=== PATIENT | female | born 1985 | race American Indian/Alaskan Native ===

== ENCOUNTER 2021-09-10 15:00 | Emergency (ER) | payer MEDICAID ==
[2021-09-10 16:19] LABS: ACETAMINOPHEN 0 ug/mL (10-30)
[2021-09-10] MEDS ORDERED: Sodium Chloride 0.9% 1,000 ML IV STA (16:21)
--- NOTE | 2021-09-10 16:21 | EDM.PDOCBH ---
ED HPI GENERAL MEDICAL PROBLEM - General Chief Complaint: Drug or Alcohol Abuse Stated Complaint: MED CLEARANCE Time Seen by Provider: 09/10/21 15:08 Source of Information: Reports: Patient, RN Notes Reviewed History Limitations: Reports: No Limitations - History of Present Illness INITIAL COMMENTS - FREE TEXT/NARRATIVE: Patient is a 35-year-old female presenting to the emergency department for medical clearance to go to the [facility]. Patient reports over the last 3-month, she has been going through episodes of binge drinking. Prior to this she had been sober for an extended period of time. In the past, she has had problems with alcoholism and drug use, however she reports that she had "kicked this ". She reports drinking [place] roximately 5 shots 3 to 4 days a week. She can go a number of days without drinking, however then subsequently goes through another binge. She feels that anxiety is likely the reason that she continues to drink is when she is completely sober she feels quite anxious. She has been treated for anxiety in the past, however it is been a number of years since she has been on any anxiety medications. Denies any history of withdrawal seizures or DT. She does not feel that she will go through alcohol withdrawal if she stops that she can usually go number of days without drinking. She is scheduled to see psychiatrist, Dr. Man on September 15. Denies any homicidal or suicidal ideation. - Related Data Allergies Allergy/AdvReac Type Severity Reaction Status Date / Time amoxicillin Allergy Cannot Verified 09/10/21 15:11 Remember Home Meds: Home Meds LORazepam [Ativan] 0.5 mg PO BID 5 Days #10 tab 09/10/21 [Rx] Past Medical History - Past Health History Medical/Surgical History: Denies Medical/Surgical History Psychiatric History: Reports: Addiction Social & Family History - Tobacco Use Tobacco Use Status *Q: Current Every Day Tobacco User Years of Tobacco use: 8 Packs/Tins Daily: 0.2 - Recreational Drug Use Recreational Drug Use: Yes Drug Use in Last 12 Months: No ED ROS GENERAL - Review of Systems Review Of Systems: Comprehensive ROS is negative, except as noted in HPI. ED EXAM, BEHAVIORAL HEALTH - Physical Exam Exam: See Below Exam Limited By: No Limitations General Appearance: Alert, WD/WN, Anxious Respiratory/Chest: No Respiratory Distress, Lungs Clear, Normal Breath Sounds, No Accessory Muscle Use, Chest Non-Tender Cardiovascular: Normal Peripheral Pulses, Regular Rate, Rhythm, No Edema, No Gallop, No JVD, No Murmur, No Rub GI/Abdominal: Normal Bowel Sounds, Soft, Non-Tender, No Organomegaly, No Distention, No Abnormal Bruit, No Mass Neurological: Alert, Normal Mood/Affect, CN II-XII Intact, Normal Cognition, Normal Reflexes, No Motor/Sensory Deficits, Oriented x 3 Psychiatric: Alert, Normal Affect, Normal Cognition, Normal Mood, Oriented Skin Exam: Warm, Dry, Intact, Normal color, No rash #1 Interpretation EKG Date: 09/10/21 Time: 16:03 Rhythm: NSR Rate (Beats/Min): 112 [place]: Normal P-Wave: Present QRS: Normal ST-T: Normal QT: Prolonged COURSE, BEHAVIORAL HEALTH COMP - Course Vital Signs: Last Vital Signs Temp 97.7 F 09/10/21 15:09 Pulse 101 H 09/10/21 18:42 Resp 16 09/10/21 18:42 BP 125/109 H 09/10/21 18:42 Pulse Ox 96 09/10/21 18:42 Orders, Labs, Meds: Laboratory Tests 09/10/21 09/10/21 09/10/21 Range/Units 15:20 15:20 15:20 WBC 3.80 L (3.98-10.04) K/mm3 RBC 5.14 (3.98-5.22) M/mm3 Hgb 14.1 (11.2-15.7) gm/dl Hct 43.9 (34.1-44.9) % MCV 85.4 (79.4-94.8) fl MCH 27.4 (25.6-32.2) pg MCHC 32.1 L (32.2-35.5) g/dl RDW Std Deviation 48.5 H (36.4-46.3) fL Plt Count 400 H (182-369) K/mm3 MPV 10.0 (9.4-12.3) fl Neutrophils % (Manual) 28 L (40-60) % Band Neutrophils % 0 (0-10) % Lymphocytes % (Manual) 49 H (20-40) % Atypical Lymphs % 5 % Monocytes % (Manual) 9 (2-10) % Eosinophils % (Manual) 8 H (0.7-5.8) % Basophils % (Manual) 1 (0.1-1.2) Platelet Estimate Increased Plt Morphology Comment See note RBC Morph Comment Normal Sodium 145 (136-145) mEq/L Potassium 4.5 (3.5-5.1) mEq/L Chloride 106 (98-107) mEq/L Carbon Dioxide 26 (21-32) mEq/L Anion Gap 17.5 H (5-15) BUN 8 (7-18) mg/dL Creatinine 0.6 (0.55-1.02) mg/dL Est Cr Clr Drug Dosing 107.23 mL/min Estimated GFR (MDRD) > 60 (>60) mL/min BUN/Creatinine Ratio 13.3 L (14-18) Glucose 107 H (70-99) mg/dL Calcium 8.5 (8.5-10.1) mg/dL Total Bilirubin 0.1 L (0.2-1.0) mg/dL AST 20 (15-37) U/L ALT 21 (14-59) U/L Alkaline Phosphatase 58 (46-116) U/L Total Protein 7.3 (6.4-8.2) g/dl Albumin 3.9 (3.4-5.0) g/dl Globulin 3.4 gm/dL Albumin/Globulin Ratio 1.2 (1-2) TSH 3rd Generation 0.937 (0.358-3.74) uIU/mL Urine HCG, Qual (NEGATIVE) Salicylates 1.8 L (2.8-20) mg/dL Urine Opiates Screen (IHTULL=193) Ur Buprenorphine Scrn (CUTOFF=10) Ur Oxycodone Screen (VLQ5IX=666) Urine Methadone Screen (PAUKPJ=978) Ur Propoxyphene Screen (TTFVRP=573) Acetaminophen 0 L (10-30) ug/mL Ur Barbiturates Screen (ADNFGT=073) Ur Tricyclics Screen (EOXXEW=382) Ur Phencyclidine Scrn (CUTOFF=25) Ur Amphetamine Screen (RTCTJN=094) U Methamphetamines Scrn (LXQZHN=374) U Benzodiazepines Scrn (ZYQNSU=744) U Cocaine Metab Screen (ODKZMM=152) U Marijuana (THC) Screen (CUTOFF=50) Ethyl Alcohol 0.33 (0.00) gm% 10/28/21 10/28/21 10/28/21 Range/Units 16:11 16:11 17:48 WBC (3.98-10.04) K/mm3 RBC (3.98-5.22) M/mm3 Hgb (11.2-15.7) gm/dl Hct (34.1-44.9) % MCV (79.4-94.8) fl MCH (25.6-32.2) pg MCHC (32.2-35.5) g/dl RDW Std Deviation (36.4-46.3) fL Plt Count (182-369) K/mm3 MPV (9.4-12.3) fl Neutrophils % (Manual) (40-60) % Band Neutrophils % (0-10) % Lymphocytes % (Manual) (20-40) % Atypical Lymphs % % Monocytes % (Manual) (2-10) % Eosinophils % (Manual) (0.7-5.8) % Basophils % (Manual) (0.1-1.2) Platelet Estimate Plt Morphology Comment RBC Morph Comment Sodium (136-145) mEq/L Potassium (3.5-5.1) mEq/L Chloride (98-107) mEq/L Carbon Dioxide (21-32) mEq/L Anion Gap (5-15) BUN (7-18) mg/dL Creatinine (0.55-1.02) mg/dL Est Cr Clr Drug Dosing mL/min Estimated GFR (MDRD) (>60) mL/min BUN/Creatinine Ratio (14-18) Glucose (70-99) mg/dL Calcium (8.5-10.1) mg/dL Total Bilirubin (0.2-1.0) mg/dL AST (15-37) U/L ALT (14-59) U/L Alkaline Phosphatase (46-116) U/L Total Protein (6.4-8.2) g/dl Albumin (3.4-5.0) g/dl Globulin gm/dL Albumin/Globulin Ratio (1-2) TSH 3rd Generation (0.358-3.74) uIU/mL Urine HCG, Qual Negative (NEGATIVE) Salicylates (2.8-20) mg/dL Urine Opiates Screen Negative (PUMRRE=360) Ur Buprenorphine Scrn Negative (CUTOFF=10) Ur Oxycodone Screen Negative (MBJ4MS=821) Urine Methadone Screen Negative (HXKNYF=343) Ur Propoxyphene Screen Negative (BGDJCZ=628) Acetaminophen (10-30) ug/mL Ur Barbiturates Screen Negative (BHRMJA=405) Ur Tricyclics Screen Negative (DFHQGA=599) Ur Phencyclidine Scrn Negative (CUTOFF=25) Ur Amphetamine Screen Negative (USGNMJ=396) U Methamphetamines Scrn Negative (KFDRPZ=436) U Benzodiazepines Scrn Negative (YNGUDA=124) U Cocaine Metab Screen Negative (FSNRJG=339) U Marijuana (THC) Screen Negative (CUTOFF=50) Ethyl Alcohol 0.26 (0.00) gm% Medications Discontinued Medications Generic Name Dose Route Start Last Admin Trade Name Freq PRN Reason Stop Dose Admin Sodium Chloride 1,000 mls @ 999 mls/hr 09/10/21 16:21 09/10/21 16:39 Normal Saline IV 09/10/21 17:21 999 mls/hr NOW STA Administration Medical Clearance: Patient is a 35-year-old female presenting to the emergency department for medical clearance to go to the [facility] [place]. Arrangements have been made for her to go there. They require blood alcohol to be less than 0.3. On breathalyzer, she was 0.27. Patient reports last drink was this morning. She had a drink in for the 3 days prior to that, however was sober for a number of days previously. Denies any history of withdrawal seizures or DTs. She does not feel that she will withdraw from alcohol as she can go an extended period of time without drinking in between her binges. She is cooperative but somewhat anxious. Expresses desire to stop drinking. I have ordered blood work, EKG, drug screen, and urinalysis medical clearance. 09/10/21 16:24 Hematology significant for WBC low at 3.8, and gap 17.5, alcohol 0.33. Drug screen and urinalysis are pending. EKG shows sinus tachycardia at 112 with no acute abnormalities. We will give her a liter of NS and plan to recheck an EtOH after this infuses. 09/10/21 18:24 Repeat blood alcohol is 0.26. Patient will be discharged to [facility] [place]. I will write for Ativan 0.5 mg twice daily until she is seen by psychiatry next Tuesday. Discharge instructions as documented. Departure - Departure Time of Disposition: 18:24 Disposition: Home, Self-Care 01 Condition: Good Clinical Impression: Alcohol abuse - Discharge Information *PRESCRIPTION DRUG MONITORING PROGRAM REVIEWED*: Yes *COPY OF PRESCRIPTION DRUG MONITORING REPORT IN PATIENT LANDY: No Prescriptions: LORazepam [Ativan] 0.5 mg PO BID 5 Days #10 tab Instructions: Alcohol Use Disorder Referrals: PCP,None [Primary Care Provider] - Forms: ED Department Discharge Additional Instructions: Take the Ativan as prescribed. Abstain from all alcohol use. Follow-up with Dr. Wei as scheduled on Tuesday. Return to ER as needed. Sepsis Event Note (ED) - Evaluation Sepsis Screening Result: No Definite Risk - Focused Exam Vital Signs: Vital Signs Temp Pulse Resp BP Pulse Ox 09/10/21 18:42 101 H 16 125/109 H 96 09/10/21 15:09 97.7 F 130 H 16 141/104 H 96
== END 2021-09-10 20:45 | disposition home or self-care (01) ==
LOC: JD.ED 15:00
DX: F10.10 Alcohol abuse, uncomplicated (principal); Y90.0 Blood alcohol level of less than 20 mg/100 ml; Z88.0 Allergy status to penicillin; Z72.0 Tobacco use
CPT/HCPCS: 36415; 80053; 80143; 80179; 80306; 80307; 81025; 84443; 85007; 85027; 93005; 99283; J7030

== ENCOUNTER 2021-09-24 19:57 | Emergency (ER) | payer MEDICAID ==
[2021-09-24] MEDS ORDERED: Ondansetron 4 MG Tab.DIS PO ONE (20:44)
--- NOTE | 2021-09-24 20:54 | EDM.PDOCBH ---
ED HPI GENERAL MEDICAL PROBLEM - General Chief Complaint: Drug or Alcohol Abuse Stated Complaint: DETOX Time Seen by Provider: 09/24/21 20:51 Source of Information: Reports: Patient History Limitations: Reports: Intoxication - History of Present Illness INITIAL COMMENTS - FREE TEXT/NARRATIVE: Patient is 35-year-old female with longstanding history of alcohol abuse presenting with a chief complaint of wanting help for alcohol detox. Patient was recently here on September 10 for similar complaint. Patient states she [facility]. She is not sure how long she was there for. She states she wants help and cannot continue her life like this. She reports several episodes of vomiting today but denies any blood in her vomit. Denies any abdominal pain. Reports last drink about 1 hour prior to arrival. Denies any drug use. - Related Data Allergies Allergy/AdvReac Type Severity Reaction Status Date / Time amoxicillin Allergy Cannot Verified 09/10/21 15:11 Remember Home Meds: Home Meds LORazepam [Ativan] 0.5 mg PO BID 5 Days #10 tab 09/10/21 [Rx] chlordiazePOXIDE [Librium] See Taper PO DAILY #15 cap 09/25/21 [Rx] Past Medical History - Past Health History Medical/Surgical History: Denies Medical/Surgical History Musculoskeletal History: Reports: Other (See Below) Other Musculoskeletal History: cr ccient 2007 and many fractured kirill Psychiatric History: Reports: Addiction - Infectious Disease History Infectious Disease History: Reports: None Social & Family History - Tobacco Use Tobacco Use Status *Q: Former Tobacco User Used Tobacco, but Quit: Yes Month/Year Tobacco Last Used: 1 monh ago - Caffeine Use Caffeine Use: Reports: None - Recreational Drug Use Recreational Drug Use: No ED ROS GENERAL - Review of Systems Review Of Systems: See Below Free Text/Narrative/Comment: In addition to that documented in the HPI above, the additional ROS was obtained: Constitutional: Denies fevers or chills Eyes: Denies vision changes ENMT: Denies sore throat CV: Denies chest pain Resp: Denies SOB GI: Per HPI : Denies painful urination MSK: Denies recent trauma Skin: Denies new rashes Neuro: Denies new numbness or tingling or weakness Endocrine: Denies unexpected weight loss Heme: Denies bleeding disorders ED EXAM, BEHAVIORAL HEALTH - Physical Exam Exam: See Below Text/Narrative:: I have reviewed the triage vital signs Const: Patient is slurring her speech appears to be heavily intoxicated. Eyes: Pupils Equal and reactive to light bilaterally, no conjunctival injection HENT: No signs of trauma or swelling, Neck supple without meningismus CV: Tachycardia with regular rhythm, Warm, well-perfused extremities RESP: Unlabored respiratory effort GI: soft, non-tender, non-distended, no masses MSK: No gross deformities appreciated Skin: Warm, dry. No rashes Neuro: There are no tremors at rest or with arms extended. 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 Sensation and motor function of extremities grossly intact. Psych: Laughing and appears to be in good spirits COURSE, BEHAVIORAL HEALTH COMP - Course Vital Signs: Last Vital Signs Temp 36.3 C 09/24/21 20:33 Pulse 94 09/25/21 05:55 Resp 16 09/25/21 05:55 BP 110/70 09/25/21 05:55 Pulse Ox 97 09/25/21 05:55 Orders, Labs, Meds: Laboratory Tests 09/24/21 09/24/21 09/25/21 Range/Units 21:03 21:03 04:55 WBC 4.86 (3.98-10.04) K/mm3 RBC 5.32 H (3.98-5.22) M/mm3 Hgb 14.6 (11.2-15.7) gm/dl Hct 44.6 (34.1-44.9) % MCV 83.8 (79.4-94.8) fl MCH 27.4 (25.6-32.2) pg MCHC 32.7 (32.2-35.5) g/dl RDW Std Deviation 47.6 H (36.4-46.3) fL Plt Count 296 D (182-369) K/mm3 MPV 10.1 (9.4-12.3) fl Neut % (Auto) 64.2 (34.0-71.1) % Lymph % (Auto) 24.1 (19.3-51.7) % [place] % (Auto) 4.7 (4.7-12.5) % Eos % (Auto) 5.1 (0.7-5.8) Baso % (Auto) 1.9 H (0.1-1.2) % Neut # (Auto) 3.12 (1.56-6.13) K/mm3 Lymph # (Auto) 1.17 L (1.18-3.74) K/mm3 [place] # (Auto) 0.23 L (0.24-0.36) K/mm3 Eos # (Auto) 0.25 (0.04-0.36) K/mm3 Baso # (Auto) 0.09 H (0.01-0.08) K/mm3 Sodium 143 (136-145) mEq/L Potassium 4.0 (3.5-5.1) mEq/L Chloride 104 (98-107) mEq/L Carbon Dioxide 26 (21-32) mEq/L Anion Gap 17.0 H (5-15) BUN 9 (7-18) mg/dL Creatinine 0.5 L (0.55-1.02) mg/dL Est Cr Clr Drug Dosing 123.02 mL/min Estimated GFR (MDRD) > 60 (>60) mL/min BUN/Creatinine Ratio 18.0 (14-18) Glucose 114 H (70-99) mg/dL Calcium 8.2 L (8.5-10.1) mg/dL Total Bilirubin 0.3 (0.2-1.0) mg/dL GGT 107 H (5-55) U/L AST 84 H (15-37) U/L ALT 48 (14-59) U/L Alkaline Phosphatase 63 (46-116) U/L Total Protein 7.6 (6.4-8.2) g/dl Albumin 3.9 (3.4-5.0) g/dl Globulin 3.7 gm/dL Albumin/Globulin Ratio 1.1 (1-2) Ethyl Alcohol 0.39 0.21 (0.00) gm% Medications Discontinued Medications Generic Name Dose Route Start Last Admin Trade Name Freq PRN Reason Stop Dose Admin Ketorolac Tromethamine 30 mg 09/25/21 01:01 09/25/21 01:08 Ketorolac 15 Mg/Ml Sdv IM 09/25/21 01:02 Not Given ONETIME ONE Ondansetron HCl 4 mg 09/24/21 20:44 09/24/21 20:52 Ondansetron 4 Mg Tab.Dis PO 09/24/21 20:45 4 mg ONETIME ONE Administration Departure - Departure Time of Disposition: 05:44 Disposition: Home, Self-Care 01 Clinical Impression: Alcohol abuse, Alcohol intoxication - Discharge Information Prescriptions: chlordiazePOXIDE [Librium] See Taper PO DAILY #15 cap Referrals: PCP,None [Primary Care Provider] - Forms: ED Department Discharge Sepsis Event Note (ED) - Focused Exam Vital Signs: Vital Signs Temp Pulse Resp BP Pulse Ox 09/25/21 05:55 94 16 110/70 97 09/24/21 20:33 36.3 C 127 H 20 148/104 H 100 - Assessment/Plan Assessment:: Patient is 35-year-old female presenting to the emergency room with a complaint of alcohol intoxication. She is requesting detox as well. Patient initial blood alcohol level 0.39. No other significant laboratory abnormalities noted besides elevated GGT which is expected with alcohol abuse. She rested to the emergency room overnight without event. Discharged in the morning to balance with Librium taper for alcohol detox. Return precautions discussed as usual. No evidence of withdrawal discharge.
[2021-09-25] MEDS ORDERED: Ketorolac 15 MG/ML SDV IM ONE (01:01)
== END 2021-09-25 06:48 | disposition home or self-care (01) ==
LOC: JD.ED 19:57
DX: F10.129 Alcohol abuse with intoxication, unspecified (principal); Y90.0 Blood alcohol level of less than 20 mg/100 ml; Z87.891 Personal history of nicotine dependence; Z88.0 Allergy status to penicillin
CPT/HCPCS: 36415; 80053; 80307; 82977; 85025; 99284; A9270

== ENCOUNTER 2021-09-25 09:16 | Emergency (ER) | payer MEDICAID ==
[2021-09-25] MEDS ORDERED: LORazepam 1 MG Tab PO ONE (10:23)
[2021-09-25] MEDS ORDERED: Ondansetron 4 MG Tab.DIS PO ONE (10:24)
--- NOTE | 2021-09-25 10:29 | EDM.PDOCBH ---
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 She was seen here early this morning. Her original blood alcohol was 0.39. She was here for a few hours and it went down to 0.21. She went to [facility] to get help and she is anxious, cannot sleep, shaking, and she has nausea and vomiting. She has no fever, chills, cough, chest pain, or shortness of breath. Dr Pathak did prescribed librium but the pharmacy was not open yet and they could not get that picked up. Onset: Gradual Duration: Hour(s): Severity: Moderate Improves with: Reports: None Worsens with: Reports: None Associated Symptoms: Reports: Nausea/Vomiting. Denies: Chest Pain, Cough, Fever/Chills, Headaches, Shortness of Breath - Related Data Allergies Allergy/AdvReac Type Severity Reaction Status Date / Time amoxicillin Allergy Cannot Verified 09/25/21 09:53 Remember Home Meds: Home Meds LORazepam [Ativan] 1 mg PO DAILY #18 tablet 09/25/21 [Rx] Ondansetron [Zofran ODT] 4 mg PO Q6H PRN #20 tab.dis 09/25/21 [Rx] chlordiazePOXIDE [Librium] See Taper PO DAILY #15 cap 09/25/21 [Rx] Past Medical History - Past Health History Medical/Surgical History: Denies Medical/Surgical History Musculoskeletal History: Reports: Other (See Below) Other Musculoskeletal History: cr ccient 2007 and many fractured kirill Psychiatric History: Reports: Addiction - Infectious Disease History Infectious Disease History: Reports: None Social & Family History - Tobacco Use Tobacco Use Status *Q: Never Tobacco User - Caffeine Use Caffeine Use: Reports: None ED ROS GENERAL - Review of Systems Review Of Systems: See Below Constitutional: Reports: No Symptoms HEENT: Reports: No Symptoms Respiratory: Reports: No Symptoms Cardiovascular: Reports: No Symptoms Endocrine: Reports: No Symptoms GI/Abdominal: Reports: Nausea, Vomiting. Denies: Abdominal Pain : Reports: No Symptoms Musculoskeletal: Reports: No Symptoms Neurological: Reports: Other (shaking) Psychiatric: Reports: Anxiety ED EXAM, BEHAVIORAL HEALTH - Physical Exam Exam: See Below Exam Limited By: No Limitations General Appearance: Alert, Anxious Ears: Normal External Exam Nose: Normal Inspection Head: Atraumatic, Normocephalic Neck: Normal Inspection Respiratory/Chest: No Respiratory Distress, Lungs Clear, Normal Breath Sounds Cardiovascular: Regular Rate, Rhythm, No Edema, No Murmur GI/Abdominal: Soft, Non-Tender, No Organomegaly, No Mass Back Exam: Normal Inspection Extremities: Normal Inspection Neurological: Other (shaking) COURSE, BEHAVIORAL HEALTH COMP - Course Vital Signs: Last Vital Signs Temp 97.8 F 09/25/21 09:49 Pulse 99 09/25/21 09:49 Resp 16 09/25/21 09:49 BP 153/95 H 09/25/21 09:49 Pulse Ox 97 09/25/21 09:49 Orders, Labs, Meds: Medications Discontinued Medications Generic Name Dose Route Start Last Admin Trade Name Freq PRN Reason Stop Dose Admin Lorazepam 2 mg 09/25/21 10:23 09/25/21 10:34 Lorazepam 1 Mg Tab PO 09/25/21 10:24 2 mg ONETIME ONE Administration Ondansetron HCl 4 mg 09/25/21 10:24 09/25/21 10:34 Ondansetron 4 Mg Tab.Dis PO 09/25/21 10:25 4 mg ONETIME ONE Administration Re-Assessment/Re-Exam: I ordered ativan 2mg PO and zofran 4mg ODT. She feels better. I will discharge her to the [facility] with ativan and zofran. Departure - Departure Time of Disposition: 12:05 Disposition: Home, Self-Care 01 Condition: Good Clinical Impression: Alcohol withdrawal syndrome Qualifiers: Complication of substance-induced condition: uncomplicated Qualified Code(s): F10.230 - Alcohol dependence with withdrawal, uncomplicated - Discharge Information *PRESCRIPTION DRUG MONITORING PROGRAM REVIEWED*: Not Applicable *COPY OF PRESCRIPTION DRUG MONITORING REPORT IN PATIENT LANDY: Not Applicable Prescriptions: LORazepam [Ativan] 1 mg PO DAILY #18 tablet Ondansetron [Zofran ODT] 4 mg PO Q6H PRN #20 tab.dis PRN Reason: Nausea\vomiting Referrals: PCP,None [Primary Care Provider] - Forms: ED Department Discharge Additional Instructions: Take the ativan and zofran as prescribed. Drink plenty of fluids. Go directly to the [facility]. Please return if you are worse. Sepsis Event Note (ED) - Evaluation Sepsis Screening Result: No Definite Risk - Focused Exam Vital Signs: Vital Signs Temp Pulse Resp BP Pulse Ox 09/25/21 09:49 97.8 F 99 16 153/95 H 97
== END 2021-09-25 12:40 | disposition home or self-care (01) ==
LOC: JD.ED 09:16
DX: F10.230 Alcohol dependence with withdrawal, uncomplicated (principal); Z88.0 Allergy status to penicillin
CPT/HCPCS: 99284; A9270

== ENCOUNTER 2021-10-08 15:59 | Emergency (ER) | payer MEDICAID ==
[2021-10-08] MEDS ORDERED: Sodium Chloride 0.9% 1,000 ML IV STA ×2 (16:41→18:07)
[2021-10-08] MEDS ORDERED: Ondansetron 4 MG/2 ML SDV IVPUSH ONE (17:16)
[2021-10-08 17:48] LABS: ACETAMINOPHEN 0 ug/mL (10-30)
[2021-10-08] MEDS ORDERED: LORazepam 2 MG/ML SDV IVPUSH ONE (18:04)
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
== END 2021-10-09 05:59 | disposition other institution (70) ==
LOC: JD.ED 15:59
DX: F10.129 Alcohol abuse with intoxication, unspecified (principal); Z88.0 Allergy status to penicillin; Z72.0 Tobacco use; Z20.822 Contact with and (suspected) exposure to COVID-19; Y90.5 Blood alcohol level of 100-119 mg/100 ml
CPT/HCPCS: 36415; 80053; 80143; 80179; 80306; 80307; 81025; 84443; 85007; 85027; 87635; 93005; 96374; 96375; 99285; J2060; J2405; J7030; U0002

== ENCOUNTER 2021-10-16 21:09 | Emergency (ER) | payer MEDICAID ==
[2021-10-16] MEDS ORDERED: Acetaminophen 325 MG Tab PO ONE (22:01)
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
--- NOTE | 2021-10-17 07:03 | CT ---
Head CT Technique: Multiple axial sections through the brain were obtained. Intravenous contrast was not utilized. Reconstructed coronal and sagittal images were obtained. Comparison: No prior intracranial imaging is available. Findings: Ventricles along with basal cisterns and sulci over the convexities are within normal limits for the patient's age. No abnormal parenchymal densities are seen. No evidence of intracranial hemorrhage is seen. No midline shift or mass-effect is seen. Bone window settings were reviewed. Visualized mastoid sinuses and paranasal sinuses show nothing acute. No acute calvarial abnormality is appreciated. Impression: 1. Nothing acute is seen on noncontrast head CT study. 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
--- NOTE | 2021-10-17 07:04 | CT ---
CT facial bones Technique: Multiple axial sections of the facial bones were obtained. Reconstructed coronal and sagittal images were obtained. Comparison: No prior facial bone studies are available. Findings: Visualized paranasal sinuses are clear. No air-fluid levels or mucosal thickening are seen. Right and left globes are symmetric. No retrobulbar abnormality is seen. No facial bone fracture is appreciated. Slight nasal septal deviation is noted. Impression: 1. Incidental finding. 2. Nothing acute is seen on CT study of the facial bones. Diagnostic code #2 I agree with preliminary report from [facility], finalized on 10/17/21, 12:28 AM SUSPENDER CUTTER, code 1
== END 2021-10-16 23:50 | disposition home or self-care (01) ==
LOC: JD.ED 21:09
DX: S00.83XA Contusion of other part of head, initial encounter (principal); Z88.0 Allergy status to penicillin; Z72.0 Tobacco use; Y04.2XXA Assault by strike against or bumped into by another person, initial encounter
CPT/HCPCS: 70450; 70486; 99284; A9270

== ENCOUNTER 2022-07-04 13:57 | Emergency (ER) | payer MEDICAID | END 2022-07-04 15:15 | LOC: JD.ED 13:57 | DX: Z53.21 Procedure and treatment not carried out due to patient leaving prior to being seen by health care provider (principal) ==

== ENCOUNTER 2022-08-15 00:50 | Emergency (ER) | payer SELFPAY ==
[2022-08-15 02:49] LABS: ESTIMATED GFR 114 mL/min (>60)
[2022-08-15 02:50] LABS: ACETAMINOPHEN 0 ug/mL (10-30)
[2022-08-15] MEDS ORDERED: LORazepam 1 MG Tab PO ONE (03:48)
== END 2022-08-15 05:16 | disposition home or self-care (01) ==
LOC: JD.ED 00:50
DX: F15.93 Other stimulant use, unspecified with withdrawal (principal); F17.210 Nicotine dependence, cigarettes, uncomplicated; Z88.0 Allergy status to penicillin; Z79.899 Other long term (current) drug therapy
CPT/HCPCS: 36415; 80053; 80143; 80179; 80306; 80307; 81003; 84443; 84702; 85025; 85610; 93005; 99284; A9270; 99283

== ENCOUNTER 2022-09-12 13:17 | Emergency (ER) | payer SELFPAY ==
[2022-09-12] MEDS ORDERED: LORazepam 1 MG Tab PO ONE (14:31)
[2022-09-12 15:47] LABS: ESTIMATED GFR 97 mL/min (>60)
[2022-09-12 15:48] LABS: ACETAMINOPHEN 0 ug/mL (10-30)
[2022-09-12] MEDS ORDERED: Fluconazole 150 MG Tab PO ONE (16:53)
== END 2022-09-12 17:35 | disposition home or self-care (01) ==
LOC: JD.ED 13:17
DX: R94.6 Abnormal results of thyroid function studies (principal); F19.10 Other psychoactive substance abuse, uncomplicated; Z88.0 Allergy status to penicillin; Z79.899 Other long term (current) drug therapy
CPT/HCPCS: 36415; 80053; 80143; 80179; 80306; 80307; 81025; 84443; 85007; 85027; 87210; 87808; 93005; 99283; A9270

== ENCOUNTER 2022-12-27 00:28 | Emergency (ER) | payer MEDICAID ==
[2022-12-27] MEDS ORDERED: LORazepam 1 MG Tab PO ONE (03:42)
== END 2022-12-27 04:00 | disposition home or self-care (01) ==
LOC: JD.ED 00:28
DX: F10.120 Alcohol abuse with intoxication, uncomplicated (principal); Z88.0 Allergy status to penicillin; Z87.891 Personal history of nicotine dependence; Y90.1 Blood alcohol level of 20-39 mg/100 ml
CPT/HCPCS: 36415; 80053; 80306; 80307; 81025; 83735; 85025; 93005; 99284; A9270; 93010